=== PATIENT | male | born 1950 | race Caucasian/White ===

== ENCOUNTER 2018-08-31 15:08 | Emergency (ER) | payer OTHER ==
[~2018-08-31] VITALS: Ht 172.7 cm; Wt 78.9 kg
[2018-08-31 15:18] VITALS: Ht 172.7 cm; Wt 78.9 kg
[2018-08-31 18:00] VITALS: BP 157/70
== END 2018-08-31 18:38 | disposition home or self-care (01) ==
LOC: ED 15:08
DX: S39.012A Strain of muscle, fascia and tendon of lower back, initial encounter (principal); X58.XXXA Exposure to other specified factors, initial encounter; Y93.89 Activity, other specified; Y92.89 Other specified places as the place of occurrence of the external cause; Y99.8 Other external cause status
CPT/HCPCS: J1885

== ENCOUNTER 2019-04-15 09:00 | Emergency (ER) | payer OTHER ==
[~2019-04-15] VITALS: Ht 172.7 cm; Wt 83.0 kg
[2019-04-15 09:06] VITALS: BP 132/67; Ht 172.7 cm; Wt 83.0 kg
== END 2019-04-15 12:22 | disposition home or self-care (01) ==
LOC: EDBD 09:00 → ED 09:00
DX: L97.919 Non-pressure chronic ulcer of unspecified part of right lower leg with unspecified severity (principal); L03.115 Cellulitis of right lower limb; F17.210 Nicotine dependence, cigarettes, uncomplicated; Z98.890 Other specified postprocedural states
CPT/HCPCS: 90714; J0696